=== PATIENT | female | born 1980 ===

== ENCOUNTER 2018-11-16 10:04 | Observation (INO) | payer OTHER ==
[2018-11-16] MEDS ORDERED: Sodium Chloride 0.9% 1,000 ML IV STA (10:26)
[2018-11-16 11:09] LABS: BASO % 0.6 % (0.0-2.0); HEMOGLOBIN 12.8 g/dL (12.0-16.0); LYMPH # 1.4 K/uL (1.0-4.3); LYMPH % 36.6 % (20.0-40.0); MEAN CELL VOLUME 94.9 fl (81.0-99.0); MEAN CORPUSCULAR HEMOGLOBIN 31.8 pg (27.0-31.0); MEAN CORPUSCULAR HGB CONC 33.5 g/dL (33.0-37.0); MEAN PLATELET VOLUME 8.5 fl (7.2-11.7); MONO # 0.7 K/uL (0.0-0.8); MONO % 17.1 % (0.0-10.0); NEUT # 1.7 K/uL (1.8-7.0); NEUT % 44.7 % (50.0-75.0); NRBC % 0.2 % (0.0-0.0); RBC 4.02 Mil/uL (3.80-5.20); RED CELL DISTRIBUTION WIDTH 13.2 % (11.5-14.5); WHITE BLOOD COUNT 3.8 K/uL (4.8-10.8)
[2018-11-16 11:12] LABS: INR 1.1
[2018-11-16 11:15] LABS: PARTIAL THROMBOPLASTIN TIME 31.2 Seconds (25.6-37.1); SQUAMOUS EPITHIAL 11 /hpf (0-5); URINE BACTERIA RARE (<OCC); URINE BILIRUBIN NEGATIVE (NEGATIVE); URINE BLOOD NEGATIVE (NEGATIVE); URINE CLARITY SLIGHTY-CLOUDY (Clear); URINE COLOR STRAW (YELLOW); URINE GLUCOSE (UA) NEG (NEGATIVE); URINE LEUKOCYTE ESTERASE NEG Leu/uL (Negative); URINE PROTEIN NEGATIVE (NEGATIVE); URINE UROBILINOGEN 0.2-1.0 mg/dL (0.2-1.0)
[2018-11-16 11:20] LABS: ALB/GLOB RATIO 1.3 (1.0-2.1); ALBUMIN 4.3 g/dL (3.5-5.0); ALT/SGPT 40 U/L (9-52); AST/SGOT 42 U/L (14-36); BLOOD UREA NITROGEN 13 mg/dl (7-17); CALCIUM 9.2 mg/dL (8.4-10.2); GFR NON-AFRICAN AMERICAN > 60
[2018-11-16] MEDS ORDERED: Iodixanol 320 MG/ML 100 ML BOTTLE IV ONE (11:29)
[2018-11-16] MEDS ORDERED: Sodium Chloride 0.9% 50 ML IV ONE (11:30)
--- NOTE | 2018-11-16 11:40 | RAD ---
Date of service: 11/16/2018 HISTORY: cough COMPARISON: No prior. TECHNIQUE: Chest PA and lateral FINDINGS: LUNGS: No active pulmonary disease. PLEURA: No significant pleural effusion identified. No pneumothorax apparent. CARDIOVASCULAR: No aortic atherosclerotic calcification present. Normal cardiac size. No pulmonary vascular congestion. OSSEOUS STRUCTURES: No significant abnormalities. VISUALIZED UPPER ABDOMEN: Normal. OTHER FINDINGS: None. IMPRESSION: No active disease.
--- NOTE | 2018-11-16 12:29 | CT ---
Date of service: 11/16/2018 PROCEDURE: CT HEAD WITHOUT CONTRAST. HISTORY: headache L facial and arm numbness COMPARISON: None available. TECHNIQUE: Axial computed tomography images were obtained through the head/brain without intravenous contrast. Supplemental Coronal and Sagittal projections created and reviewed. Radiation dose: Total exam DLP = 768.37 mGy-cm. This CT exam was performed using one or more of the following dose reduction techniques: Automated exposure control, adjustment of the mA and/or kV according to patient size, and/or use of iterative reconstruction technique. FINDINGS: HEMORRHAGE: No intracranial hemorrhage. BRAIN: No mass effect or edema. No atrophy or chronic microvascular ischemic changes. VENTRICLES: Unremarkable. No hydrocephalus. CALVARIUM: Unremarkable. PARANASAL SINUSES: Unremarkable as visualized. No significant inflammatory changes. MASTOID AIR CELLS: Unremarkable as visualized. No inflammatory changes. OTHER FINDINGS: None. IMPRESSION: No acute intracranial abnormalities. No significant findings to account for the clinical presentation.
--- NOTE | 2018-11-16 12:45 | CT ---
Date of service: 11/16/2018 PROCEDURE: CT NECK WITH CONTRAST HISTORY: L neck pain/swelling COMPARISON: None available. TECHNIQUE: CT of the neck with intravenous contrast. Coronal and sagittal reformats generated. Intravenous contrast dose: 95 cc Visipaque 320. Radiation dose: Total exam DLP = 267.01 mGy-cm. This CT exam was performed using one or more of the following dose reduction techniques: Automated exposure control, adjustment of the mA and/or kV according to patient size, and/or use of iterative reconstruction technique. FINDINGS: NASOPHARYNX: Unremarkable. SUPRAHYOID NECK: Asymmetry of the lingual and palatine tonsillar complex on the left without evidence of peritonsillar abscess. Smaller and fewer lymph nodes identified in the neck on the right. INFRAHYOID NECK: Unremarkable larynx, hypopharynx, and supraglottic space. Vocal cords intact. MASS: None. GLANDS: Parotid and submandibular glands unremarkable. Normal size thyroid gland, without nodule. LYMPH NODES: Extensive/bulky lymphadenopathy on the left. This includes levels 2A, 2 B, level 3 and levels 5A and 5B. CERVICAL SPINE: No fracture or focal lesion. VASCULAR STRUCTURES: Unremarkable. OTHER FINDINGS: None. IMPRESSION: Extensive lymphadenopathy on the left anatomically described above. Asymmetry of the left tonsil compared to the right. There is no evidence of tonsillar abscess. Communication of results: I discussed the findings directly with the referring physician in the emergency department at the time of this interpretation.
--- NOTE | 2018-11-16 13:00 | ED PDOC ---
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 Denies focal weakness, sore throat, cough, body aches. Notes some weight loss. Past Medical History Reviewed: Historical Data, Nursing Documentation, Vital Signs Vital Signs: Last Vital Signs Temp 97 F L 11/16/18 10:13 Pulse 76 11/16/18 10:13 Resp 18 11/16/18 10:13 BP 136/78 11/16/18 10:13 Pulse Ox 100 11/16/18 10:13 - Medical History PMH: No Chronic Diseases - Surgical History Surgical History: No Surg Hx - Family History Family History: States: Unknown Family Hx - Social History Current smoker - smoking cessation education provided: No - Immunization History Hx Tetanus Toxoid Vaccination: No Hx Influenza Vaccination: No Hx Pneumococcal Vaccination: No - Allergies Allergies/Adverse Reactions: Allergies Allergy/AdvReac Type Severity Reaction Status Date / Time Penicillins Allergy RASH Verified 11/16/18 10:12 Review of Systems Constitutional: Positive for: Fever, Malaise ENT: Negative for: Ear Pain, Throat Pain, Throat Swelling Cardiovascular: Negative for: Chest Pain Respiratory: Negative for: Cough, Shortness of Breath Gastrointestinal: Positive for: Nausea. Negative for: Abdominal Pain Musculoskeletal: Positive for: Neck Pain Skin: Negative for: Rash, Lesions Neurological: Positive for: Numbness, Headache, Dizziness. Negative for: Weakness, Altered Mental Status Psych: Negative for: Depression Physical Exam - Reviewed Nursing Documentation Reviewed: Yes Vital Signs Reviewed: Yes - Physical Exam Appears: Positive for: Well, Non-toxic, No Acute Distress Head Exam: Positive for: ATRAUMATIC, NORMAL INSPECTION, NORMOCEPHALIC Skin: Positive for: Normal Color, Warm, DRY Eye Exam: Positive for: EOMI, Normal appearance, PERRL ENT: Positive for: Normal ENT Inspection Neck: Positive for: Trachea Midline. Negative for: Normal (+ L tender adenop athy) Cardiovascular/Chest: Positive for: Regular Rate, Rhythm Respiratory: Positive for: Normal Breath Sounds. Negative for: Decreased Breath Sounds, Wheezing, Respiratory Distress Gastrointestinal/Abdominal: Positive for: Normal Exam, Soft. Negative for: Tenderness Back: Positive for: Normal Inspection Extremity: Positive for: Normal ROM Lymphatic: Positive for: Adenopathy (L cervical chain, no axillary or inguinal adenopathy) Neurologic/Psych: Positive for: Alert, Oriented, Other (strength 5/5 all ext, coordination intact). Negative for: Motor/Sensory Deficits, Facial Droop - Laboratory Results Result Diagrams: 11/16/18 10:30 11/16/18 10:30 Lab Results: PT 12.0 Seconds (9.8-13.1) 11/16/18 10:30 INR 1.1 11/16/18 10:30 APTT 31.2 Seconds (25.6-37.1) 11/16/18 10:30 Total Bilirubin 0.3 mg/dl (0.2-1.3) 11/16/18 10:30 AST 42 U/L (14-36) H D 11/16/18 10:30 ALT 40 U/L (9-52) 11/16/18 10:30 Alkaline Phosphatase 69 U/L (38-126) 11/16/18 10:30 Total Protein 7.7 G/DL (6.3-8.2) 11/16/18 10:30 Albumin 4.3 g/dL (3.5-5.0) 11/16/18 10:30 Globulin 3.4 gm/dL (2.2-3.9) 11/16/18 10:30 Albumin/Globulin Ratio 1.3 (1.0-2.1) 11/16/18 10:30 Urine Color Straw (YELLOW) 11/16/18 10:30 Urine Clarity Slighty-cloudy (Clear) 11/16/18 10:30 Urine pH 8.0 (5.0-8.0) 11/16/18 10:30 Ur Specific [place] 1.006 (1.003-1.030) 11/16/18 10:30 Urine Protein Negative mg/dL (NEGATIVE) 11/16/18 10:30 Urine Glucose (UA) Neg mg/dL (NEGATIVE) 11/16/18 10:30 Urine Ketones Negative mg/dL (NEGATIVE) 11/16/18 10:30 Urine Blood Negative (NEGATIVE) 11/16/18 10:30 Urine Nitrate Negative (NEGATIVE) 11/16/18 10:30 Urine Bilirubin Negative (NEGATIVE) 11/16/18 10:30 Urine Urobilinogen 0.2-1.0 mg/dL (0.2-1.0) 11/16/18 10:30 Ur Leukocyte Esterase Neg Alejandro/uL (Negative) 11/16/18 10:30 Urine RBC (Auto) 1 /hpf (0-3) 11/16/18 10:30 Urine Microscopic WBC < 1 /hpf (0-5) 11/16/18 10:30 Ur Squamous Epith Cells 11 /hpf (0-5) H 11/16/18 10:30 Urine Bacteria Rare (<OCC) 11/16/18 10:30 Urine POC: Negative - ECG O2 Sat by Pulse Oximetry: 100 Medical Decision Making Medical Decision Making: labs reviewed reveal mild leukopenia chem unremarkable Accession No. : [id number] Patient Name / ID : JONNATHAN HUTCHINS / [id number] Exam Date : 11/16/2018 11:41:46 ( Approved ) Study Comment : Sex / Age : F / 38Y Creator : Darrius Callahan MD Dictator : Darrius Callahan MD Paint Formulator : Furnace Charger : Darrius Callahan MD Approver2 : Report Date : 11/16/2018 12:25:09 My Comment : Date of service: 11/16/2018 PROCEDURE: CT HEAD WITHOUT CONTRAST. HISTORY: headache L facial and arm numbness COMPARISON: None available. TECHNIQUE: Axial computed tomography images were obtained through the head/brain without intravenous contrast. Supplemental Coronal and Sagittal projections created and reviewed. Radiation dose: Total exam DLP = 768.37 mGy-cm. This CT exam was performed using one or more of the following dose reduction techniques: Automated exposure control, adjustment of the mA and/or kV according to patient size, and/or use of iterative reconstruction technique. FINDINGS: HEMORRHAGE: No intracranial hemorrhage. BRAIN: No mass effect or edema. No atrophy or chronic microvascular ischemic changes. VENTRICLES: Unremarkable. No hydrocephalus. CALVARIUM: Unremarkable. PARANASAL SINUSES: Unremarkable as visualized. No significant inflammatory changes. MASTOID AIR CELLS: Unremarkable as visualized. No inflammatory changes. OTHER FINDINGS: None. IMPRESSION: No acute intracranial abnormalities. No significant findings to account for the clinical presentation. Accession No. : [id number] Patient Name / ID : JONNATHAN HUTCHINS / [id number] Exam Date : 11/16/2018 11:26:54 ( Approved ) Study Comment : Sex / Age : F / 38Y Creator : Darrius Callahan MD Dictator : Darrius Callahan MD Paint Formulator : Furnace Charger : Darrius Callahan MD Approver2 : Report Date : 11/16/2018 12:42:06 My Comment : Date of service: 11/16/2018 PROCEDURE: CT NECK WITH CONTRAST HISTORY: L neck pain/swelling COMPARISON: None available. TECHNIQUE: CT of the neck with intravenous contrast. Coronal and sagittal reformats generated. Intravenous contrast dose: 95 cc Visipaque 320. Radiation dose: Total exam DLP = 267.01 mGy-cm. This CT exam was performed using one or more of the following dose reduction techniques: Automated exposure control, adjustment of the mA and/or kV according to patient size, and/or use of iterative reconstruction technique. FINDINGS: NASOPHARYNX: Unremarkable. SUPRAHYOID NECK: Asymmetry of the lingual and palatine tonsillar complex on the left without evidence of peritonsillar abscess. Smaller and fewer lymph nodes identified in the neck on the right. INFRAHYOID NECK: Unremarkable larynx, hypopharynx, and supraglottic space. Vocal cords intact. MASS: None. GLANDS: Parotid and submandibular glands unremarkable. Normal size thyroid gland, without nodule. LYMPH NODES: Extensive/bulky lymphadenopathy on the left. This includes levels 2A, 2 B, level 3 and levels 5A and 5B. CERVICAL SPINE: No fracture or focal lesion. VASCULAR STRUCTURES: Unremarkable. OTHER FINDINGS: None. IMPRESSION: Extensive lymphadenopathy on the left anatomically described above. Asymmetry of the left tonsil compared to the right. There is no evidence of tonsillar abscess. Communication of results: I discussed the findings directly with the referring physician in the emergency department at the time of this interpretation. Disposition - Clinical Impression Clinical Impression: Lymphadenopathy - Disposition
--- NOTE | 2018-11-16 15:31 | CP.PCM.HP ---
<Marquez Flowers - Last Filed: 11/16/18 15:21> History of Present Illness - History of Present Illness History of Present Illness: 38 y/o F patient with no PMHx seen and examined in the ED for pain, erythema and swelling of the left side of the face. Patient states that 3 weeks ago she started to feel pain, redness and swelling in her left side of the face and neck. She states that it got worse. She states that She tried Advil but it didn't work. Patient states that she had fever since the beginning of the problem which is not subsided. Patient denies any other symptoms. She denies any N/V/C/CP/SOB/Diarrhea/constipation/appetite change/urinary symptoms. PMH: Denies. PSH: Denies. Allergies: Penicillins. Social Hx: Denies. Family Hx: Denies smoking, EtOH use or Illicit drug use Present on Admission - Present on Admission Any Indicators Present on Admission: No History of DVT/PE: No History of Uncontrolled Diabetes: No Urinary Catheter: No Decubitus Ulcer Present: No Review of Systems - Review of Systems Review of Systems: As per HPI - Constitutional Constitutional: As Per HPI Past Patient History - Past Social History Smoking Status: Never Smoked - PSYCHIATRIC Hx Substance Use: No - SURGICAL HISTORY Hx Surgeries: No - ANESTHESIA Hx Anesthesia: No Meds Allergies/Adverse Reactions: Allergies Allergy/AdvReac Type Severity Reaction Status Date / Time Penicillins Allergy RASH Verified 11/16/18 10:12 Physical Exam - Constitutional Appears: No Acute Distress - Head Exam Head Exam: ATRAUMATIC Additional comments: Swelling and erythema noted on the left side of the head and neck. Pain on palpation of the left side of the head and neck. - Eye Exam Eye Exam: EOMI, Normal appearance, PERRL Pupil Exam: NORMAL ACCOMODATION, PERRL - ENT Exam ENT Exam: Mucous Membranes Moist - Neck Exam Neck exam: Positive for: Tenderness Additional comments: Swelling and erythema noted on the left side of the head and neck. Pain on palpation of the left side of the head and neck. - Respiratory Exam Respiratory Exam: Clear to Auscultation Bilateral, NORMAL BREATHING PATTERN - Cardiovascular Exam Cardiovascular Exam: REGULAR RHYTHM, +S1, +S2 - GI/Abdominal Exam GI & Abdominal Exam: Normal Bowel Sounds, Soft - Extremities Exam Extremities exam: Positive for: normal capillary refill, normal inspection Additional comments: Small Lnd noted on the right inguinal area. - Back Exam Back exam: NORMAL INSPECTION - Neurological Exam Neurological exam: Alert, CN II-XII Intact, Oriented x3 - Psychiatric Exam Psychiatric exam: Normal Affect, Normal Mood - Skin Skin Exam: Dry, Intact, Warm Results - Vital Signs Recent Vital Signs: Last Vital Signs Temp 97 F L 11/16/18 10:13 Pulse 76 11/16/18 10:13 Resp 18 11/16/18 10:13 BP 136/78 11/16/18 10:13 Pulse Ox 100 11/16/18 13:03 - Labs Result Diagrams: 11/16/18 10:30 11/16/18 10:30 Labs: Laboratory Results - last 24 hr 11/16/18 11/16/18 11/16/18 10:30 10:30 10:30 WBC 3.8 L RBC 4.02 Hgb 12.8 Hct 38.2 MCV 94.9 MCH 31.8 H MCHC 33.5 RDW 13.2 Plt Count 254 MPV 8.5 Neut % (Auto) 44.7 L Lymph % (Auto) 36.6 Runnels % (Auto) 17.1 H Eos % (Auto) 1.0 Baso % (Auto) 0.6 Neut # (Auto) 1.7 L Lymph # (Auto) 1.4 [place] # (Auto) 0.7 Eos # (Auto) 0.0 Baso # (Auto) 0.0 PT 12.0 INR 1.1 APTT 31.2 Sodium 139 Potassium 4.0 Chloride 98 Carbon Dioxide 27 Anion Gap 18 BUN 13 Creatinine 0.6 L Est GFR ( Amer) > 60 Est GFR (Non-Af Amer) > 60 Random Glucose 83 Calcium 9.2 Total Bilirubin 0.3 AST 42 H D ALT 40 Alkaline Phosphatase 69 Total Protein 7.7 Albumin 4.3 Globulin 3.4 Albumin/Globulin Ratio 1.3 TSH 3rd Generation 1.66 Urine Color Urine Clarity Urine pH Ur Specific [place] Urine Protein Urine Glucose (UA) Urine Ketones Urine Blood Urine Nitrate Urine Bilirubin Urine Urobilinogen Ur Leukocyte Esterase Urine RBC (Auto) Urine Microscopic WBC Ur Squamous Epith Cells Urine Bacteria Infectious [place] Assay 11/16/18 11/16/18 10:30 13:00 WBC RBC Hgb Hct MCV MCH MCHC RDW Plt Count MPV Neut % (Auto) Lymph % (Auto) [place] % (Auto) Eos % (Auto) Baso % (Auto) Neut # (Auto) Lymph # (Auto) [place] # (Auto) Eos # (Auto) Baso # (Auto) PT INR APTT Sodium Potassium Chloride Carbon Dioxide Anion Gap BUN Creatinine Est GFR ( Amer) Est GFR (Non-Af Amer) Random Glucose Calcium Total Bilirubin AST ALT Alkaline Phosphatase Total Protein Albumin Globulin Albumin/Globulin Ratio TSH 3rd Generation Urine Color Straw Urine Clarity Slighty-cloudy Urine pH 8.0 Ur Specific [place] 1.006 Urine Protein Negative Urine Glucose (UA) Neg Urine Ketones Negative Urine Blood Negative Urine Nitrate Negative Urine Bilirubin Negative Urine Urobilinogen 0.2-1.0 Ur Leukocyte Esterase Neg Urine RBC (Auto) 1 Urine Microscopic WBC < 1 Ur Squamous Epith Cells 11 H Urine Bacteria Rare Infectious [place] Assay Negative Assessment & Plan - Assessment and Plan (Free Text) Assessment: 38 y/o F patient with no PMHx seen and examined in the ED for pain, erythema and swelling of the left side of the face. Patient to be admitted for observation. Hematology consultation ordered for the patient. - CT head; No acute intracranial abnormality detected. - CT soft tissue neck: Left lymphadenopathy, left tonsillar and linual comlex asymmetry. Plan: # Left Neck pain 2ry to lymphangitis, Lymphadenitis - Acute. - Afebrile, No Leukocytosis. - CT head; No acute intracranial abnormality detected. - CT soft tissue neck: Left lymphadenopathy, left tonsillar and linual comlex asymmetry. - Chest X-ray; No active disease. - Follow up CBC and BMP in the morning. - Hematology consultation. - Toradol and acetaminophen for pain. # DVT prophylaxis - SCD for now - Date & Time Date: 11/16/18 Time: 15:35 <Phil Davalos D - Last Filed: 11/17/18 09:59> Results - Vital Signs Recent Vital Signs: Last Vital Signs Temp 98.4 F 11/17/18 07:56 Pulse 75 11/17/18 07:56 Resp 18 11/17/18 07:56 BP 107/69 11/17/18 07:56 Pulse Ox 99 11/17/18 07:56 - Labs Result Diagrams: 11/16/18 10:30 11/16/18 10:30 Labs: Laboratory Results - last 24 hr 11/16/18 11/16/18 11/16/18 10:30 10:30 10:30 WBC 3.8 L RBC 4.02 Hgb 12.8 Hct 38.2 MCV 94.9 MCH 31.8 H MCHC 33.5 RDW 13.2 Plt Count 254 MPV 8.5 Neut % (Auto) 44.7 L Lymph % (Auto) 36.6 [place] % (Auto) 17.1 H Eos % (Auto) 1.0 Baso % (Auto) 0.6 Neut # (Auto) 1.7 L Lymph # (Auto) 1.4 [place] # (Auto) 0.7 Eos # (Auto) 0.0 Baso # (Auto) 0.0 ESR PT 12.0 INR 1.1 APTT 31.2 Sodium 139 Potassium 4.0 Chloride 98 Carbon Dioxide 27 Anion Gap 18 BUN 13 Creatinine 0.6 L Est GFR ( Amer) > 60 Est GFR (Non-Af Amer) > 60 Random Glucose 83 Calcium 9.2 Total Bilirubin 0.3 AST 42 H D ALT 40 Alkaline Phosphatase 69 Lactate Dehydrogenase Total Protein 7.7 Albumin 4.3 Globulin 3.4 Albumin/Globulin Ratio 1.3 TSH 3rd Generation 1.66 Urine Color Urine Clarity Urine pH Ur Specific [place] Urine Protein Urine Glucose (UA) Urine Ketones Urine Blood Urine Nitrate Urine Bilirubin Urine Urobilinogen Ur Leukocyte Esterase Urine RBC (Auto) Urine Microscopic WBC Ur Squamous Epith Cells Urine Bacteria HIV-1 Ab Rapid Screen Infectious [place] Assay 11/16/18 11/16/18 11/16/18 10:30 13:00 13:00 WBC RBC Hgb Hct MCV MCH MCHC RDW Plt Count MPV Neut % (Auto) Lymph % (Auto) [place] % (Auto) Eos % (Auto) Baso % (Auto) Neut # (Auto) Lymph # (Auto) [place] # (Auto) Eos # (Auto) Baso # (Auto) ESR PT INR APTT Sodium Potassium Chloride Carbon Dioxide Anion Gap BUN Creatinine Est GFR ( Amer) Est GFR (Non-Af Amer) Random Glucose Calcium Total Bilirubin AST ALT Alkaline Phosphatase Lactate Dehydrogenase Total Protein Albumin Globulin Albumin/Globulin Ratio TSH 3rd Generation Urine Color Straw Urine Clarity Slighty-cloudy Urine pH 8.0 Ur Specific [place] 1.006 Urine Protein Negative Urine Glucose (UA) Neg Urine Ketones Negative Urine Blood Negative Urine Nitrate Negative Urine Bilirubin Negative Urine Urobilinogen 0.2-1.0 Ur Leukocyte Esterase Neg Urine RBC (Auto) 1 Urine Microscopic WBC < 1 Ur Squamous Epith Cells 11 H Urine Bacteria Rare HIV-1 Ab Rapid Screen Non reactive Infectious [place] Assay Negative 11/16/18 11/17/18 20:49 04:05 WBC RBC Hgb Hct MCV MCH MCHC RDW Plt Count MPV Neut % (Auto) Lymph % (Auto) [place] % (Auto) Eos % (Auto) Baso % (Auto) Neut # (Auto) Lymph # (Auto) [place] # (Auto) Eos # (Auto) Baso # (Auto) ESR 37 H PT INR APTT Sodium Potassium Chloride Carbon Dioxide Anion Gap BUN Creatinine Est GFR ( Amer) Est GFR (Non-Af Amer) Random Glucose Calcium Total Bilirubin AST ALT Alkaline Phosphatase Lactate Dehydrogenase 585 Total Protein Albumin Globulin Albumin/Globulin Ratio TSH 3rd Generation Urine Color Urine Clarity Urine pH Ur Specific [place] Urine Protein Urine Glucose (UA) Urine Ketones Urine Blood Urine Nitrate Urine Bilirubin Urine Urobilinogen Ur Leukocyte Esterase Urine RBC (Auto) Urine Microscopic WBC Ur Squamous Epith Cells Urine Bacteria HIV-1 Ab Rapid Screen Infectious [place] Assay Attending/Attestation - Attestation I have personally seen and examined this patient.: Yes I have fully participated in the care of the patient.: Yes I have reviewed all pertinent clinical information: Yes Notes (Text): 11/17/18 09:57 Patient seen and examined with resident. Case discussed and agreed with assessment and plan of management.
[2018-11-16] MEDS ORDERED: Gadodiamide 287 MG/ML VIAL (15ML) IV ONE (15:58)
--- NOTE | 2018-11-16 17:44 | MRI ---
Date of service: 11/16/2018 PROCEDURE: MR CERVICAL SPINE WITHOUT CONTRAST HISTORY: L ARM NUMBNESS COMPARISON: None available. TECHNIQUE: Multiecho multiplanar sequences were performed through the cervical spine without the use of intravenous contrast. FINDINGS: Normal lordotic curvature. Craniocervical junction unremarkable. Vertebral body heights preserved. No marrow signal abnormality. Normal cervical cord. No paraspinal abnormality. C2-C3: No disc herniation, spinal canal stenosis or neural foraminal narrowing. C3-C4: No disc herniation, spinal canal stenosis or neural foraminal narrowing. C4-C5: No disc herniation, spinal canal stenosis or neural foraminal narrowing. C5-C6: No disc herniation, spinal canal stenosis or neural foraminal narrowing. C6-C7: No disc herniation, spinal canal stenosis or neural foraminal narrowing. C7-T1: No disc herniation, spinal canal stenosis or neural foraminal narrowing. OTHER FINDINGS: None. IMPRESSION: Unremarkable non contrast enhanced MRI of the cervical spine.
--- NOTE | 2018-11-16 17:51 | MRI ---
Date of service: 11/16/2018 PROCEDURE: MRI BRAIN WITH AND WITHOUT CONTRAST HISTORY: L ARM NUMBNESS COMPARISON: None available. TECHNIQUE: Multiplanar, multisequence MR images of the brain were obtained with and without intravenous contrast enhancement. FINDINGS: HEMORRHAGE: None DWI: No evidence of an acute or early subacute infarction. BRAIN PARENCHYMA: There is a solitary right frontal subcortical long TR hyper intensity under 1 cm size which does not enhance and is of uncertain significance and origin. No abnormal intracranial enhancement is appreciated throughout the examination in fact. There is no mass effect. Corticomedullary differentiation is normal throughout and there is no suspicious extra-axial collection appreciated. Posterior fossa contents appear unremarkable including the brainstem. ENHANCEMENT: No abnormal intracranial enhancement. VENTRICLES: Unremarkable. No hydrocephalus. CRANIUM: Unremarkable. ORBITS: Grossly unremarkable. PARANASAL SINUSES/MASTOIDS: Clear VASCULAR SYSTEM: Skull base flow voids intact. OTHER FINDINGS: None . IMPRESSION: Nonspecific solitary right frontal subcortical long TR hyperintensity of uncertain origin. No abnormal intracranial enhancement. No mass effect, acute or subacute brain infarction or suspicious extra-axial fluid collection identified.
--- NOTE | 2018-11-16 20:28 | CP.PCM.CON ---
History of Present Illness - History of Present Illness History of Present Illness: 38 year old female with no past medical history presenting with left neck/facial discomfort, found to have bulky left neck lymphadenopathy. The patient denies weightloss, fatigue, and night sweats. She reports to progressive left neck pain which failed to improve with Advil. A CT neck revealed left sided neck lymphadenopathy. She denies difficulty swallowing and breathing. Past medical history: Denies Past surgical history: Denies Family history: Denies hematologic and oncologic problems Social history: Denies tobacco, alcohol, and illicit drug use. Allergies: Penicillins Review of systems: All remaining review of systems including HEENT, cardiovascular, respiratory, gastrointestinal, genitourinary, musculoskeletal, dermatologic, neurologic, and psychiatric are negative unless mentioned in the HPI. Past Patient History - Past Medical History & Family History Past Medical History?: No - Past Social History Smoking Status: Never Smoked - CARDIAC Hx Cardiac Disorders: No - PULMONARY Hx Respiratory Disorders: No - NEUROLOGICAL Hx Neurological Disorder: No - HEENT Hx HEENT Problems: No - RENAL Hx Chronic Kidney Disease: No - ENDOCRINE/METABOLIC Hx Endocrine Disorders: No - HEMATOLOGICAL/ONCOLOGICAL Hx Blood Disorders: No - INTEGUMENTARY Hx Dermatological Problems: No - MUSCULOSKELETAL/RHEUMATOLOGICAL Hx Musculoskeletal Disorders: No Hx Falls: No - GENITOURINARY/GYNECOLOGICAL Hx Genitourinary Disorders: No - PSYCHIATRIC Hx Psychophysiologic Disorder: No Hx Substance Use: No - SURGICAL HISTORY Hx Surgeries: No - ANESTHESIA Hx Anesthesia: No Meds Allergies/Adverse Reactions: Allergies Allergy/AdvReac Type Severity Reaction Status Date / Time Penicillins Allergy RASH Verified 11/16/18 10:12 - Medications Medications: Current Medications Acetaminophen (Tylenol 325mg Tab) 325 mg PO Q6 PRN PRN Reason: Pain, Mild (1-3) Iohexol (Omnipaque 240 (50 Ml)) 50 ml PO ONCE ONE Stop: 11/17/18 09:01 Ketorolac Tromethamine (Toradol) 15 mg IVP Q6 PRN PRN Reason: Pain, severe (8-10) Last Admin: 11/16/18 19:02 Dose: 15 mg Physical Exam - Head Exam Head Exam: ATRAUMATIC - Eye Exam Eye Exam: Normal appearance - ENT Exam ENT Exam: Mucous Membranes Dry - Neck Exam Neck exam: Positive for: Lymphadenopathy - Respiratory Exam Respiratory Exam: NORMAL BREATHING PATTERN - Cardiovascular Exam Cardiovascular Exam: +S1, +S2 - GI/Abdominal Exam GI & Abdominal Exam: Normal Bowel Sounds - Extremities Exam Extremities exam: Positive for: normal inspection - Neurological Exam Neurological exam: Oriented x3 - Psychiatric Exam Psychiatric exam: Normal Affect, Normal Mood - Skin Skin Exam: Warm Results - Vital Signs Recent Vital Signs: Last Vital Signs Temp 98.8 F 11/16/18 19:40 Pulse 69 11/16/18 19:40 Resp 17 11/16/18 19:40 BP 109/68 11/16/18 19:40 Pulse Ox 98 11/16/18 19:40 - Labs Result Diagrams: 11/16/18 10:30 11/16/18 10:30 Labs: Laboratory Results - last 24 hr 11/16/18 11/16/18 11/16/18 10:30 10:30 10:30 WBC 3.8 L RBC 4.02 Hgb 12.8 Hct 38.2 MCV 94.9 MCH 31.8 H MCHC 33.5 RDW 13.2 Plt Count 254 MPV 8.5 Neut % (Auto) 44.7 L Lymph % (Auto) 36.6 [place] % (Auto) 17.1 H Eos % (Auto) 1.0 Baso % (Auto) 0.6 Neut # (Auto) 1.7 L Lymph # (Auto) 1.4 [place] # (Auto) 0.7 Eos # (Auto) 0.0 Baso # (Auto) 0.0 PT 12.0 INR 1.1 APTT 31.2 Sodium 139 Potassium 4.0 Chloride 98 Carbon Dioxide 27 Anion Gap 18 BUN 13 Creatinine 0.6 L Est GFR ( Amer) > 60 Est GFR (Non-Af Amer) > 60 Random Glucose 83 Calcium 9.2 Total Bilirubin 0.3 AST 42 H D ALT 40 Alkaline Phosphatase 69 Total Protein 7.7 Albumin 4.3 Globulin 3.4 Albumin/Globulin Ratio 1.3 TSH 3rd Generation 1.66 Urine Color Urine Clarity Urine pH Ur Specific [place] Urine Protein Urine Glucose (UA) Urine Ketones Urine Blood Urine Nitrate Urine Bilirubin Urine Urobilinogen Ur Leukocyte Esterase Urine RBC (Auto) Urine Microscopic WBC Ur Squamous Epith Cells Urine Bacteria HIV-1 Ab Rapid Screen Infectious [place] Assay 11/16/18 11/16/18 11/16/18 10:30 13:00 13:00 WBC RBC Hgb Hct MCV MCH MCHC RDW Plt Count MPV Neut % (Auto) Lymph % (Auto) [place] % (Auto) Eos % (Auto) Baso % (Auto) Neut # (Auto) Lymph # (Auto) [place] # (Auto) Eos # (Auto) Baso # (Auto) PT INR APTT Sodium Potassium Chloride Carbon Dioxide Anion Gap BUN Creatinine Est GFR ( Amer) Est GFR (Non-Af Amer) Random Glucose Calcium Total Bilirubin AST ALT Alkaline Phosphatase Total Protein Albumin Globulin Albumin/Globulin Ratio TSH 3rd Generation Urine Color Straw Urine Clarity Slighty-cloudy Urine pH 8.0 Ur Specific [place] 1.006 Urine Protein Negative Urine Glucose (UA) Neg Urine Ketones Negative Urine Blood Negative Urine Nitrate Negative Urine Bilirubin Negative Urine Urobilinogen 0.2-1.0 Ur Leukocyte Esterase Neg Urine RBC (Auto) 1 Urine Microscopic WBC < 1 Ur Squamous Epith Cells 11 H Urine Bacteria Rare HIV-1 Ab Rapid Screen Non reactive Infectious [place] Assay Negative Assessment & Plan (1) Lymphadenopathy Assessment and Plan: CT chest, abdomen, and pelvis with PO + IV contrast recommend excisional LN of most accessible lesion for further evaluation will add LDH Thank you for this interesting consult. Status: Acute
[2018-11-17] MEDS ORDERED: Iohexol 240 (50 ml) PO ONE (09:00)
[2018-11-17 12:18] LABS: BASO % 0.8 % (0.0-2.0); EOS % 0.8 % (0.0-4.0); HEMOGLOBIN 11.9 g/dL (12.0-16.0); LYMPH # 1.3 K/uL (1.0-4.3); LYMPH % 35.3 % (20.0-40.0); MEAN CELL VOLUME 94.3 fl (81.0-99.0); MEAN CORPUSCULAR HEMOGLOBIN 31.6 pg (27.0-31.0); MEAN CORPUSCULAR HGB CONC 33.5 g/dL (33.0-37.0); MEAN PLATELET VOLUME 8.2 fl (7.2-11.7); MONO # 0.5 K/uL (0.0-0.8); MONO % 13.6 % (0.0-10.0); NEUT # 1.8 K/uL (1.8-7.0); NEUT % 49.5 % (50.0-75.0); NRBC % 0.2 % (0.0-0.0); RBC 3.77 Mil/uL (3.80-5.20); RED CELL DISTRIBUTION WIDTH 13.2 % (11.5-14.5); WHITE BLOOD COUNT 3.7 K/uL (4.8-10.8)
--- NOTE | 2018-11-17 12:54 | CP.PCM.CON ---
History of Present Illness - History of Present Illness History of Present Illness: 38F with no significant past medical history presents to [facility] with complaints of left sided neck pain and swelling. Patient states she first noticed a nodule along side of her left neck about 2.5 weeks ago. She states she didn't think much of it and wanted to wait and see if it got better. She states nodularity along her neck began getting worse as time went by and she started developing neck pain. Patient reports subjective fever/chills at night. Denies sick contacts. Denies family history of cancer. PMHx: none PSurgHx: none Fam Hx: non contributory Soc Hx: Denies smoking, EtOH use, illicit drug use Allergies: Penicillin (rash and dyspnea) Review of Systems - Review of Systems Review of Systems: 10 pt ROS negative except as stated in HPI Past Patient History - Past Medical History & Family History Past Medical History?: No - Past Social History Smoking Status: Never Smoked - CARDIAC Hx Cardiac Disorders: No - PULMONARY Hx Respiratory Disorders: No - NEUROLOGICAL Hx Neurological Disorder: No - HEENT Hx HEENT Problems: No - RENAL Hx Chronic Kidney Disease: No - ENDOCRINE/METABOLIC Hx Endocrine Disorders: No - HEMATOLOGICAL/ONCOLOGICAL Hx Blood Disorders: No - INTEGUMENTARY Hx Dermatological Problems: No - MUSCULOSKELETAL/RHEUMATOLOGICAL Hx Musculoskeletal Disorders: No Hx Falls: No - GENITOURINARY/GYNECOLOGICAL Hx Genitourinary Disorders: No - PSYCHIATRIC Hx Psychophysiologic Disorder: No Hx Substance Use: No - SURGICAL HISTORY Hx Surgeries: No - ANESTHESIA Hx Anesthesia: No Meds Allergies/Adverse Reactions: Allergies Allergy/AdvReac Type Severity Reaction Status Date / Time Penicillins Allergy RASH Verified 11/16/18 10:12 - Medications Medications: Current Medications Acetaminophen (Tylenol 325mg Tab) 325 mg PO Q6 PRN PRN Reason: Pain, Mild (1-3) Ketorolac Tromethamine (Toradol) 15 mg IVP Q6 PRN PRN Reason: Pain, severe (8-10) Last Admin: 11/17/18 08:39 Dose: 15 mg Physical Exam - Constitutional Appears: No Acute Distress - Head Exam Head Exam: NORMOCEPHALIC - Eye Exam Eye Exam: EOMI, Normal appearance - ENT Exam ENT Exam: Mucous Membranes Moist - Neck Exam Neck exam: Positive for: Lymphadenopathy Additional comments: left side of neck multiple palpable mobile lymph nodes no axillary lymphadenopathy noted - Respiratory Exam Respiratory Exam: NORMAL BREATHING PATTERN - Cardiovascular Exam Cardiovascular Exam: +S1, +S2 - GI/Abdominal Exam GI & Abdominal Exam: Soft - Neurological Exam Neurological exam: Alert, Oriented x3 - Skin Skin Exam: Dry, Intact, Warm Results - Vital Signs Recent Vital Signs: Last Vital Signs Temp 98.4 F 11/17/18 12:00 Pulse 71 11/17/18 12:00 Resp 18 11/17/18 12:00 BP 101/64 11/17/18 12:00 Pulse Ox 95 11/17/18 12:00 - Labs Result Diagrams: 11/17/18 12:01 11/17/18 12:01 Labs: Laboratory Results - last 24 hr 11/16/18 11/16/18 11/16/18 13:00 13:00 20:49 WBC RBC Hgb Hct MCV MCH MCHC RDW Plt Count MPV Neut % (Auto) Lymph % (Auto) [place] % (Auto) Eos % (Auto) Baso % (Auto) Neut # (Auto) Lymph # (Auto) [place] # (Auto) Eos # (Auto) Baso # (Auto) ESR 37 H Lactate Dehydrogenase HIV-1 Ab Rapid Screen Non reactive Infectious [place] Assay Negative 11/17/18 11/17/18 04:05 12:01 WBC 3.7 L RBC 3.77 L Hgb 11.9 L Hct 35.6 MCV 94.3 MCH 31.6 H MCHC 33.5 RDW 13.2 Plt Count 257 MPV 8.2 Neut % (Auto) 49.5 L Lymph % (Auto) 35.3 [place] % (Auto) 13.6 H Eos % (Auto) 0.8 Baso % (Auto) 0.8 Neut # (Auto) 1.8 Lymph # (Auto) 1.3 [place] # (Auto) 0.5 Eos # (Auto) 0.0 Baso # (Auto) 0.0 ESR Lactate Dehydrogenase 585 HIV-1 Ab Rapid Screen Infectious [place] Assay Assessment & Plan - Assessment and Plan (Free Text) Assessment: 38F with left neck lymphadenopathy Plan: NPO p MN IVF F/U CT Abd&Pel Heme-Onc recs appreciated Pt scheduled for excisional biopsy tomorrow at 12 PM D/w Dr. Laurent Bergman PGY3
--- NOTE | 2018-11-17 12:58 | CP.PCM.PN ---
Subjective - Date & Time of Evaluation Date of Evaluation: 11/17/18 Time of Evaluation: 12:48 - Subjective Subjective: 38 y/o F patient with no PMHx seen and examined in the bedside for pain, erythema and swelling of the left side of the face. Patient states that she has overnight headache allover her head. She states that she was slightly nauseous yesterday. She denies any overnight acute events. Patient denies any other symptoms. She denies any overnight V/C/CP/SOB/Diarrhea/constipation/appetite change/urinary symptoms. Objective - Vital Signs/Intake and Output Vital Signs (last 24 hours): Temp Pulse Resp BP Pulse Ox 98.4 F 71 18 101/64 95 11/17/18 12:00 11/17/18 12:00 11/17/18 12:00 11/17/18 12:00 11/17/18 12:00 - Medications Medications: Current Medications Acetaminophen (Tylenol 325mg Tab) 325 mg PO Q6 PRN PRN Reason: Pain, Mild (1-3) Ketorolac Tromethamine (Toradol) 15 mg IVP Q6 PRN PRN Reason: Pain, severe (8-10) Last Admin: 11/17/18 08:39 Dose: 15 mg - Labs Labs: 11/17/18 12:01 11/16/18 10:30 PT 12.0 Seconds (9.8-13.1) 11/16/18 10:30 INR 1.1 11/16/18 10:30 APTT 31.2 Seconds (25.6-37.1) 11/16/18 10:30 - Constitutional Appears: Well, Non-toxic, No Acute Distress - Head Exam Head Exam: ATRAUMATIC, NORMOCEPHALIC Additional comments: Mild Swelling and slight erythema noted on the left side of the head and neck. Pain on palpation of the left side of the head and neck. - Eye Exam Eye Exam: EOMI, Normal appearance, PERRL Pupil Exam: NORMAL ACCOMODATION, PERRL - ENT Exam ENT Exam: Mucous Membranes Moist, Normal Exam - Neck Exam Neck Exam: Full ROM, Lymphadenopathy - Respiratory Exam Respiratory Exam: Clear to Ausculation Bilateral, NORMAL BREATHING PATTERN - Cardiovascular Exam Cardiovascular Exam: REGULAR RHYTHM, +S1, +S2 - GI/Abdominal Exam GI & Abdominal Exam: Soft, Normal Bowel Sounds - Extremities Exam Extremities Exam: Full ROM, Normal Capillary Refill, Normal Inspection Additional comments: Small Lnd noted on the right inguinal area. - Back Exam Back Exam: NORMAL INSPECTION - Neurological Exam Neurological Exam: Alert, Awake, CN II-XII Intact, Oriented x3 Neuro motor strength exam: Left Upper Extremity: 5, Right Upper Extremity: 5, Left Lower Extremity: 5, Right Lower Extremity: 5 - Psychiatric Exam Psychiatric exam: Normal Affect, Normal Mood - Skin Skin Exam: Dry, Intact, Normal Color, Warm Assessment and Plan - Assessment and Plan (Free Text) Assessment: 38 y/o F patient with no PMHx seen and examined in the ED for pain, erythema and swelling of the left side of the face. Patient to be admitted for observation. Hematology consultation ordered for the patient. - CT head; No acute intracranial abnormality detected. - CT soft tissue neck: Left lymphadenopathy, left tonsillar and linual comlex asymmetry. - Cervical spine MRI: Non remarkable. - Brain MRI: Non specific R frontal long TR subcortical hyperintensity. No other abnormality detected. Plan: # Left Neck pain 2ry to lymphangitis, Lymphadenitis - Acute. - Afebrile, No Leukocytosis. - Ordered CMV Abs (IgG, IgM), RPR. - ESR; 37. - CT head; No acute intracranial abnormality detected. - CT soft tissue neck: Left lymphadenopathy, left tonsillar and linual comlex asymmetry. - Cervical spine MRI: Non remarkable. - Brain MRI: Non specific R frontal long TR subcortical hyperintensity. No other abnormality detected. - Chest X-ray; No active disease. - Hematology consultation, Reccs appreciated. - General surgery consultation for Excisional Lnd Biopsy, Reccs appreciated. - Patient scheduled for Neck Lnd biopsy tomorrow. - NPO starting midnight. - Toradol and acetaminophen for pain according to pain level. # DVT prophylaxis - SCD for now
[2018-11-17 13:02] LABS: BLOOD UREA NITROGEN 10 mg/dl (7-17); CALCIUM 8.8 mg/dL (8.4-10.2); GFR NON-AFRICAN AMERICAN > 60
[2018-11-17] MEDS: Sodium Chloride 0.9% 1,000 ML IV SCH (13:17)
[2018-11-17] MEDS ORDERED: Sodium Chloride 0.9% 50 ML IV ONE (17:02)
[2018-11-17] MEDS ORDERED: Iohexol 300 100 ML IJ ONE (17:02)
--- NOTE | 2018-11-17 18:41 | CT ---
Date of service: 11/17/2018 CT chest, abdomen, and pelvis with IV contrast Indication: bulky lymphadenopathy Technique: Contiguous axial images of the chest, abdomen, and pelvis. Coronal and Sagittal reformats generated and reviewed. This CT exam was performed using 1 or more of the following dose reduction techniques: Automated exposure control, adjustment of the MAA and/or kV according to patient size, and/or use of iterative reconstruction technique. Contrast: 95 mL Omnipaque 300 IV Radiation dose: Total exam DLP = 468.76 MGy-cm. Comparison: Chest x-ray performed 06/11/14 Findings: Visualized portions of the inferior thyroid gland appear unremarkable. The mediastinal and hilar vascular structures appear within normal limits. Partially imaged adenopathy within the included portions of the neck/superior left clavicular region. The heart appears within normal limits of size. No focal consolidation. No pleural effusion. No pneumothorax. Oral contrast within the distal esophagus consistent with gastroesophageal reflux. The liver, spleen, kidneys, pancreas, adrenal glands, and gallbladder appear unremarkable. The stomach is nondistended. The bowel loops appear within normal limits of caliber without evidence of intestinal obstruction. There is no definite free air. Heterogeneous appearance of the uterus appears consistent with fibroids. Small pelvic free fluid. 1.7 cm probable right ovarian cyst. The urinary bladder appears unremarkable. Visualized osseous structures appear unremarkable. Impression: Partially imaged adenopathy within the included portions of the neck/superior left clavicular region; please refer to CT soft tissue neck performed 11/16/18 for more detailed discussion. Otherwise, evidence of bulky adenopathy appreciated. Recommend correlation with prior outside imaging if available. No focal consolidation, pleural effusion, or pneumothorax. Heterogeneous appearance of the uterus may represent fibroids. Small pelvic free fluid. 1.7 cm probable right ovarian cyst. Suggest further evaluation with pelvic ultrasound.
[2018-11-18] MEDS: Sodium Chloride 0.9% 1,000 ML IV SCH ×2 (04:04→04:12)
[2018-11-18 06:09] LABS: BASO % 0.7 % (0.0-2.0); EOS % 1.4 % (0.0-4.0); HEMOGLOBIN 11.3 g/dL (12.0-16.0); LYMPH # 1.2 K/uL (1.0-4.3); LYMPH % 41.4 % (20.0-40.0); MEAN CELL VOLUME 93.3 fl (81.0-99.0); MEAN CORPUSCULAR HEMOGLOBIN 31.9 pg (27.0-31.0); MEAN CORPUSCULAR HGB CONC 34.2 g/dL (33.0-37.0); MEAN PLATELET VOLUME 8.5 fl (7.2-11.7); MONO # 0.4 K/uL (0.0-0.8); MONO % 14.6 % (0.0-10.0); NEUT # 1.2 K/uL (1.8-7.0); NEUT % 41.9 % (50.0-75.0); NRBC % 0.2 % (0.0-0.0); RBC 3.54 Mil/uL (3.80-5.20); RED CELL DISTRIBUTION WIDTH 13.3 % (11.5-14.5); WHITE BLOOD COUNT 2.9 K/uL (4.8-10.8)
[2018-11-18 06:17] LABS: BLOOD UREA NITROGEN 9 mg/dl (7-17); CALCIUM 8.2 mg/dL (8.4-10.2); GFR NON-AFRICAN AMERICAN > 60
[2018-11-18] MEDS ORDERED: Bupivacaine 0.5% Inj(30mL) ONE (12:26)
[2018-11-18] MEDS ORDERED: Lidocaine 1% Inj (20ml) ONE (12:26)
[2018-11-18] MEDS ORDERED: Midazolam 2 MG/2 ML VIAL ONE (12:28)
[2018-11-18] MEDS ORDERED: Propofol 10 mg/ml Inj (20 ML) ONE (12:28)
[2018-11-18] MEDS ORDERED: Succinylcholine Chloride 20 mg/ml Syr (5 ml) IV ONE (12:29)
[2018-11-18] MEDS ORDERED: Lactated Ringer's 1,000 ML IV ONE (12:35)
[2018-11-18] MEDS ORDERED: Sevoflurane - Inhalation Anesthetic Liq (250 ml) ONE (12:40)
--- NOTE | 2018-11-18 13:37 | PCM.SURG1 ---
Surgeon's Initial Post Op Note - Surgeon's Notes Surgeon: Rosanne Mancilla MD Knitted Goods Shaper: Nory PGY3 Pre-Operative Diagnosis: Left cervical lymphadenopathy Operative Findings: Left cervical lymphadenopathy Post-Operative Diagnosis: Left cervical lymphadenopathy Operation Performed: Excisional biopsy of left cervical lymph nodes Specimen/Specimens Removed: Left cervical lymph nodes Estimated Blood Loss: EBL {In ML}: 5 Date of Surgery/Procedure: 11/18/18 Time of Surgery/Procedure: 13:37
[2018-11-18] MEDS: HYDROmorphone 0.5 mg/0.5 ml ISec IVP PRN ×2 (13:55→14:10)
--- NOTE | 2018-11-18 14:02 | CP.PCM.DIS ---
Provider - Provider Date of Admission: 11/16/18 14:32 Attending physician: Phil Davalos MD Consults: 11/16/18 15:35 Hematology Oncology Consult Stat Comment: Consulting Provider: Rey Colon Consulting Physician: Rey Colon Reason for Consult: bulky lymphadenopathies 11/17/18 07:50 Surgical [General Surgery Consult] Routine Comment: Consulting Provider: Rosanne Mancilla Consulting Physician: Rosanne Mancilla Reason for Consult: Surgical excision of LN Time Spent in preparation of Discharge (in minutes): 30 Hospital Course - Lab Results Lab Results: Most Recent Lab Values WBC 2.9 K/uL (4.8-10.8) L 11/18/18 05:30 RBC 3.54 Mil/uL (3.80-5.20) L 11/18/18 05:30 Hgb 11.3 g/dL (12.0-16.0) L 11/18/18 05:30 Hct 33.0 % (34.0-47.0) L 11/18/18 05:30 MCV 93.3 fl (81.0-99.0) 11/18/18 05:30 MCH 31.9 pg (27.0-31.0) H 11/18/18 05:30 MCHC 34.2 g/dL (33.0-37.0) 11/18/18 05:30 RDW 13.3 % (11.5-14.5) 11/18/18 05:30 Plt Count 222 K/uL (130-400) 11/18/18 05:30 MPV 8.5 fl (7.2-11.7) 11/18/18 05:30 Neut % (Auto) 41.9 % (50.0-75.0) L 11/18/18 05:30 Lymph % (Auto) 41.4 % (20.0-40.0) H 11/18/18 05:30 [place] % (Auto) 14.6 % (0.0-10.0) H 11/18/18 05:30 Eos % (Auto) 1.4 % (0.0-4.0) 11/18/18 05:30 Baso % (Auto) 0.7 % (0.0-2.0) 11/18/18 05:30 Neut # (Auto) 1.2 K/uL (1.8-7.0) L 11/18/18 05:30 Lymph # (Auto) 1.2 K/uL (1.0-4.3) 11/18/18 05:30 [place] # (Auto) 0.4 K/uL (0.0-0.8) 11/18/18 05:30 Eos # (Auto) 0.0 K/uL (0.0-0.7) 11/18/18 05:30 Baso # (Auto) 0.0 K/uL (0.0-0.2) 11/18/18 05:30 ESR 37 mm/hr (0-20) H 11/16/18 20:49 PT 12.0 Seconds (9.8-13.1) 11/16/18 10:30 INR 1.1 11/16/18 10:30 APTT 31.2 Seconds (25.6-37.1) 11/16/18 10:30 Sodium 139 mmol/l (132-148) 11/18/18 05:30 Potassium 4.4 MMOL/L (3.6-5.0) 11/18/18 05:30 Chloride 103 mmol/L (98-107) 11/18/18 05:30 Carbon Dioxide 30 mmol/L (22-30) 11/18/18 05:30 Anion Gap 10 (10-20) 11/18/18 05:30 BUN 9 mg/dl (7-17) 11/18/18 05:30 Creatinine 0.6 mg/dl (0.7-1.2) L 11/18/18 05:30 Est GFR ( Amer) > 60 11/18/18 05:30 Est GFR (Non-Af Amer) > 60 11/18/18 05:30 Random Glucose 87 mg/dL (65-105) 11/18/18 05:30 Calcium 8.2 mg/dL (8.4-10.2) L 11/18/18 05:30 Total Bilirubin 0.3 mg/dl (0.2-1.3) 11/16/18 10:30 AST 42 U/L (14-36) H D 11/16/18 10:30 ALT 40 U/L (9-52) 11/16/18 10:30 Alkaline Phosphatase 69 U/L (38-126) 11/16/18 10:30 Lactate Dehydrogenase 585 U/L (313-618) 11/17/18 04:05 Total Protein 7.7 G/DL (6.3-8.2) 11/16/18 10:30 Albumin 4.3 g/dL (3.5-5.0) 11/16/18 10:30 Globulin 3.4 gm/dL (2.2-3.9) 11/16/18 10:30 Albumin/Globulin Ratio 1.3 (1.0-2.1) 11/16/18 10:30 TSH 3rd Generation 1.66 mIU/ML (0.46-4.68) 11/16/18 10:30 Urine Color Straw (YELLOW) 11/16/18 10:30 Urine Clarity Slighty-cloudy (Clear) 11/16/18 10:30 Urine pH 8.0 (5.0-8.0) 11/16/18 10:30 Ur Specific [place] 1.006 (1.003-1.030) 11/16/18 10:30 Urine Protein Negative mg/dL (NEGATIVE) 11/16/18 10:30 Urine Glucose (UA) Neg mg/dL (NEGATIVE) 11/16/18 10:30 Urine Ketones Negative mg/dL (NEGATIVE) 11/16/18 10:30 Urine Blood Negative (NEGATIVE) 11/16/18 10:30 Urine Nitrate Negative (NEGATIVE) 11/16/18 10:30 Urine Bilirubin Negative (NEGATIVE) 11/16/18 10:30 Urine Urobilinogen 0.2-1.0 mg/dL (0.2-1.0) 11/16/18 10:30 Ur Leukocyte Esterase Neg [place]/uL (Negative) 11/16/18 10:30 Urine RBC (Auto) 1 /hpf (0-3) 11/16/18 10:30 Urine Microscopic WBC < 1 /hpf (0-5) 11/16/18 10:30 Ur Squamous Epith Cells 11 /hpf (0-5) H 11/16/18 10:30 Urine Bacteria Rare (<OCC) 11/16/18 10:30 RPR Nonreactive (NONREACTIVE) 11/17/18 09:10 HIV-1 Ab Rapid Screen Non reactive (NON REAC) 11/16/18 13:00 Infectious [place] Assay Negative (NEGATIVE) 11/16/18 13:00 - Hospital Course Hospital Course: 38 y/o F patient with no PMHx admitted for Left cervical lymphadenopathy. After admission patient received pain meds (Toradol and acetaminophen). Patient had CT head, Soft tissue CT neck, Cervical spine MRI, Jet MRI, Chest/abdomen/pelvis CT. Hematology consulted and recommended lymph node excisional biopsy. General surgery consulted and performed lymph node biopsy today. During her hospital stay Patient didn't have any acute events. Patient to follow up at the [facility] and with general surgery upon discharge. Assessment: 38 y/o F patient with no PMHx seen and examined in the bedside S/P Left cervical lymph node biopsy. Patient admitted for Left cervical lymphadenopathy. - CT head; No acute intracranial abnormality detected. - CT soft tissue neck: Left lymphadenopathy, left tonsillar and linual comlex asymmetry. - Cervical spine MRI: Non remarkable. - Brain MRI: Non specific R frontal long TR subcortical hyperintensity. No other abnormality detected. - Chest/abdomen and pelvis CT: Left cervical lymphadenopathy, No pleural effusion, Lung consolidation, Heterogenous Uterine apperance mostly fibroids, Small pelvic fluid collection. Plan: # Left Neck pain 2ry to lymphangitis, Lymphadenitis - Acute. - Afebrile, No Leukocytosis. - Ordered CMV Abs (IgG, IgM); Pending result. - RPR; Non reactive - ESR; 37. - CT head; No acute intracranial abnormality detected. - CT soft tissue neck: Left lymphadenopathy, left tonsillar and linual comlex asymmetry. - Cervical spine MRI: Non remarkable. - Brain MRI: Non specific R frontal long TR subcortical hyperintensity. No other abnormality detected. - Chest/abdomen and pelvis CT: Left cervical lymphadenopathy, No pleural effusion, Lung consolidation, Heterogenous Uterine apperance mostly fibroids, Small pelvic fluid collection. - Chest X-ray; No active disease. - Hematology consultation, Reccs appreciated. - General surgery consultation for Excisional Lnd Biopsy, Reccs appreciated. - Patient went for left cervical Lnd biopsy today - OTC Pain medication if indicated. - Patient to apply for jameel care at the main floor of the hospital. - Patient to follow up at the [facility] 11/23/2018 at 10 am. - Patient to follow up with general surgery for postoperative care. Discharge Exam - Head Exam Head Exam: ATRAUMATIC, NORMOCEPHALIC - Eye Exam Eye Exam: EOMI, Normal appearance, PERRL Pupil Exam: NORMAL ACCOMODATION, PERRL - Neck Exam Neck exam: Full Rom Additional comments: dressing at the left side of the neck for the lymph node biopsy surgery. Dressin g is C/D/I - Respiratory Exam Respiratory Exam: Clear to PA & Lateral, NORMAL BREATHING PATTERN, UNREMARKABLE - Cardiovascular Exam Cardiovascular Exam: REGULAR RHYTHM, +S1, +S2 - GI/Abdominal Exam GI & Abdominal Exam: Normal Bowel Sounds, Unremarkable - Extremities Exam Extremities exam: full ROM, normal capillary refill - Back Exam Back exam: NORMAL INSPECTION - Neurological Exam Neurological exam: Alert, Oriented x3 - Psychiatric Exam Psychiatric exam: Normal Affect, Normal Mood - Skin Skin Exam: Dry, Normal Color, Warm Discharge Plan - Follow Up Plan Condition: FAIR Disposition: HOME/ ROUTINE Instructions: Lymphadenitis (DC) Referrals: [facility] [Outside] Rosanne Mancilla MD [Staff Provider] -
[2018-11-18 19:27] VITALS: BP 119/77; PULSE 71; RESP 18; TEMP 98.2; O2SAT 98
--- NOTE | 2018-11-18 21:32 | CP.PCM.PN ---
Subjective - Date & Time of Evaluation Date of Evaluation: 11/17/18 Time of Evaluation: 13:00 - Subjective Subjective: No complaints. Objective - Vital Signs/Intake and Output Vital Signs (last 24 hours): Temp Pulse Resp BP Pulse Ox 98.2 F 71 18 119/77 98 11/18/18 19:26 11/18/18 19:26 11/18/18 19:26 11/18/18 19:26 11/18/18 19:26 Intake and Output: 11/18/18 11/19/18 18:59 06:59 Intake Total 700 Balance 700 - Medications Medications: Current Medications Acetaminophen (Tylenol 325mg Tab) 325 mg PO Q6 PRN PRN Reason: Pain, Mild (1-3) Last Admin: 11/17/18 18:20 Dose: 325 mg Ketorolac Tromethamine (Toradol) 15 mg IVP Q6 PRN PRN Reason: Pain, severe (8-10) - Labs Labs: 11/18/18 05:30 11/18/18 05:30 PT 12.0 Seconds (9.8-13.1) 11/16/18 10:30 INR 1.1 11/16/18 10:30 APTT 31.2 Seconds (25.6-37.1) 11/16/18 10:30 - Head Exam Head Exam: ATRAUMATIC - Eye Exam Eye Exam: Normal appearance - ENT Exam ENT Exam: Mucous Membranes Dry - Respiratory Exam Respiratory Exam: NORMAL BREATHING PATTERN - Cardiovascular Exam Cardiovascular Exam: +S1, +S2 - GI/Abdominal Exam GI & Abdominal Exam: Normal Bowel Sounds Assessment and Plan (1) Lymphadenopathy Assessment & Plan: for excisional LN biopsy Status: Acute
--- NOTE | 2018-11-18 21:32 | CP.PCM.PN ---
Subjective - Date & Time of Evaluation Date of Evaluation: 11/18/18 Time of Evaluation: 12:00 - Subjective Subjective: No complaints. Objective - Vital Signs/Intake and Output Vital Signs (last 24 hours): Temp Pulse Resp BP Pulse Ox 98.2 F 71 18 119/77 98 11/18/18 19:26 11/18/18 19:26 11/18/18 19:26 11/18/18 19:26 11/18/18 19:26 Intake and Output: 11/18/18 11/19/18 18:59 06:59 Intake Total 700 Balance 700 - Medications Medications: Current Medications Acetaminophen (Tylenol 325mg Tab) 325 mg PO Q6 PRN PRN Reason: Pain, Mild (1-3) Last Admin: 11/17/18 18:20 Dose: 325 mg Ketorolac Tromethamine (Toradol) 15 mg IVP Q6 PRN PRN Reason: Pain, severe (8-10) - Labs Labs: 11/18/18 05:30 11/18/18 05:30 PT 12.0 Seconds (9.8-13.1) 11/16/18 10:30 INR 1.1 11/16/18 10:30 APTT 31.2 Seconds (25.6-37.1) 11/16/18 10:30 - Head Exam Head Exam: ATRAUMATIC - Eye Exam Eye Exam: Normal appearance - ENT Exam ENT Exam: Mucous Membranes Dry - Respiratory Exam Respiratory Exam: NORMAL BREATHING PATTERN - Cardiovascular Exam Cardiovascular Exam: +S1, +S2 - GI/Abdominal Exam GI & Abdominal Exam: Normal Bowel Sounds Assessment and Plan (1) Lymphadenopathy Assessment & Plan: for excisional LN biopsy Status: Acute
--- NOTE | 2018-11-18 23:05 | OP ---
PROCEDURE DATE: 11/18/2018 PREOPERATIVE DIAGNOSIS: Left cervical lymphadenopathy. POSTOPERATIVE DIAGNOSIS: Left cervical lymphadenopathy. PROCEDURE PERFORMED: Excisional biopsy of left cervical lymph nodes. SURGEON: Rosanne Mancilla MD OYSTER CULLER: Carlos Eduardo Cueto DO ANESTHESIA: Sedation with LMA. ANESTHESIOLOGIST: Amarjit Frost MD ESTIMATED BLOOD LOSS: 5 mL. DESCRIPTION OF OPERATION: Upon sedation and LMA intubation, the patient was placed in the supine position with a shoulder roll behind her and head rotated to the right side. The left side of the neck was prepped and draped in the usual sterile fashion. Incision was made above the largest lymph node seen. Dissection was done with blunt clamps and electrocautery to make sure we had hemostasis. Two cervical lymph nodes were taken out, one for culture, one for pathology. There was minimal bleeding and bleeding was taken care of with electrocautery. The skin was closed with three interrupted 4-0 Monocryl sutures and Dermabond on top. Postoperatively, the patient tolerated the procedure well and was moved to the PACU without any complications. Estimated blood loss was 5 mL. Carlos Eduardo Cueto DO Rosanne Mancilla MD [facility]oni
== END 2018-11-18 20:22 | disposition home or self-care (01) ==
LOC: H.ER 10:04 → H.ERHOLD 14:32 → H.TEL 15:56
DX: I89.1 Lymphangitis (principal); M54.2 Cervicalgia; Z88.0 Allergy status to penicillin
CPT/HCPCS: 36415; 38510; 70450; 70491; 70553; 71046; 71260; 72141; 74177; 80048; 80053; 81003; 81025; 83615; 84443; 85025; 85610; 85651; 85730; 86308; 86592; 86644; 86645; 87070; 87390; 88305; 96360; 99285; A9579; G0378; J1170; J1885; J2001; J2250; J2405; J2704; J3010; J7030; J7120; Q9966; Q9967